=== PATIENT | female | born 1960 | race Caucasian/White ===

== ENCOUNTER 2022-12-22 12:11 | Outpatient (REF) | payer OTHER, SELFPAY ==
[2022-12-22 13:52] LABS: Hematocrit 41.2 % (37.0-47.0); Hemoglobin 13.2 g/dl (12.0-16.0); Mean Corpuscular Hemoglobin 27.2 pg (27.0-33.0); Mean Corpuscular Volume 84.9 fL (80.0-98.0); Mean Platelet Volume 10.4 fL (9.4-12.3); Platelet Count 305 X10*3/uL (160-400); Red Blood Count 4.85 X10*6/uL (4.20-5.50); Red Cell Distribution Width 13.3 % (11.0-16.0); White Blood Count 6.7 X10*3/uL (4.8-10.8)
[2022-12-22 13:53] LABS: Appearance Urine Clear; Color Urine Yellow; Glucose Urine UA Negative (Negative); Leukocyte Esterase Urine Small (1+) (Negative); Nitrite Urine Negative (Negative); PH 7.5 (5.0-9.0); Specific Gravity - Urine 1.015 (1.005-1.025); UMIC TRIGGER UACC YES; Urine Blood Negative (Negative); Urine Ketones Negative (Negative); Urine Protein Negative (Neg-Trace)
[2022-12-22 13:59] LABS: Bacteria Urine None Seen (None Seen); Hyaline Casts Urine 0-2 /LPF (0-2); RBC Urine 0-2 /HPF (0-2); UACC Culture Trigger YES
[2022-12-22 14:21] LABS: Alanine Aminotransferase 27 U/L (0-31); Albumin Level 4.3 g/dL (3.5-5.0); Alkaline Phosphatase 79 U/L (39-117); Anion Gap 12 (12-20); Aspartate Amino Transferase 19 U/L (5-31); Bilirubin Total 0.6 mg/dL (0.0-1.0); Blood Urea Nitrogen 13 mg/dL (9-16); Calcium 9.8 mg/dL (8.4-10.2); Carbon Dioxide 26 mmol/L (22-29); Chloride 105 mmol/L (96-108); Cholesterol 245 mg/dL; Estimated Glomerular Filt Rate > 60; Glucose Fasting 99 mg/dL (60-99); HDL Cholesterol 64 mg/dL; LDL Cholesterol Calculated 165 mg/dl; Sodium 139 mmol/L (135-145); Total Protein 7.9 g/dL (6.5-8.0); Triglycerides 80 mg/dL
[2022-12-22 14:37] LABS: TSH reflex Free T4 3.11 uIU/mL (0.32-4.0)
== END 2022-12-22 12:12 | disposition home or self-care (01) ==
LOC: HO.WFDLDS 12:11
PROVIDERS: Visit Provider Nurse Practitioner Family
DX: Z00.00 Encounter for general adult medical examination without abnormal findings (principal); E78.5 Hyperlipidemia, unspecified
CPT/HCPCS: 36415; 80053; 80061; 81001; 84443; 85027; 87086

== ENCOUNTER 2023-01-25 15:42 | Outpatient (AMB) | payer OTHER, SELFPAY ==
[2023-01-25 15:53] VITALS: BP 128/80; PULSE 88; RESP 12; TEMP 36.6; O2SAT 98; BMI 39.4
--- NOTE | 2023-01-25 15:53 | A.OFFPC_ITS ---
Vital Signs 01/25/23 15:53 Height 5 ft 2 in Weight 215 lb 8 oz BMI 39.4 BP 128/80 Blood Pressure Location Rt brachial Position Sitting Respiration 12 Pulse 88 Pulse Source Pulse Oximeter Temp 97.9 F Temp Source Temporal Artery Scan Pulse Oximetry (%) 98 Oxygen Delivery Method Room Air Intake Visit Reasons: f/u lab review and abdominal pain Intake Note: Patient states that abdominal pain is more rare now and only occurs when she eats late in the night. Patient states that omeprazole causes pressure and pain on her bladder and caused her to urinate alot more frequently and causes urinating to sting. Patient stopped taking the Omeprazole due to these problems. Sole Rounding Machine Operator Required: Yes Sole Rounding Machine Operator Name: Leticia (daughter) Accompanied by: Daughter Allergies No Known Allergies Allergy (Verified 01/25/23 16:10) Medication List - Last Reconciled 01/25/23 by Herve Mcelroy CNP aspirin 81 mg PO DAILY Tobacco use date assessed: 12/22/22 Dental Screening Dental Screen Date: 01/25/23 Did you have a dental visit in the last 12 months?: Yes Did you have a dental problem in the last 6 months where you did not have access to dental care?: No Was dental information given to patient?: Patient has dentist HPI HPI Comments History of Present Illness Details 62-year-old female, accompanied by her daughter, presents for chronic, intermittent abdominal pain and recent labs review follow-up. She established care month ago. She was started on omeprazole for burning and dull abdominal pain. She reports less frequent abdominal pain; she notes she experiences the pain which she eats late at night. She reports pressure pain to her bladder, and frequent and burning with urination while she was on omeprazole; She stopped taking the medication and her symtptoms completely subsided. No acute symptoms. She notes she recently sent a stool sample for Cologuard test. [facility] Medical History High blood pressure Surgical History No pertinent past surgical history Family History Mother High blood pressure Diabetes Father High blood pressure Diabetes Other Mental health disorder Social History Housing: House Patient Tobacco Use Status: Never used Tobacco e-Cigarette/Vaping Use: Never Used service: No Current occupational status: employed Current occupation: Regional Recruiter Cognitive needs: No Hearing needs: No Vision needs: Yes Questionnaire Thrive Questionnaire Date Thrive assessed: 12/22/22 TON-7 AMB Questionnaire TON-7 Date TON - 7 assessed: 12/22/22 Source: Developed by Drs. Nazario Pereira, Africa Bustos, Kiran Alberto and colleagues, with an educational boris from [employer]. Review of Systems Const Details: Const Denies chills, Denies fatigue, Denies fever(s), Denies headache(s) and Denies weakness ENT Denies dizziness and Denies headache(s) Card Denies chest pain, Denies lightheadedness, Denies dyspnea and Denies other (Palpitations) Resp Denies cough, Denies dyspnea, Denies wheezing and Denies other ( shortness of breath) GI Denies abdominal pain, Denies melena, Denies hematochezia, Denies change in bowel habits, Denies dyspepsia and Denies nausea Denies hematuria and Denies dysuria Musc Denies abnormal gait, Denies myalgias, Denies arthralgias, Denies numbness and Denies tingling Skin/Breast Denies rash, Denies unusual bruising and Denies wounds Neuro Denies abnormal gait, Denies dizziness, Denies headache(s), Denies memory loss, Denies numbness, Denies Sensory deficit (Neuro), Denies tingling and Denies weakness Psych Denies anxiety and Denies depression Endo Denies fatigue Aller/Immun Denies wheezing Physical exam (Primary Care) Vital Signs: Last Vital Signs Temp 97.9 F 01/25/23 15:53 Pulse 88 01/25/23 15:53 Resp 12 01/25/23 15:53 BP 128/80 01/25/23 15:53 Pulse Ox 98 01/25/23 15:53 Oxygen Delivery Method Room Air 01/25/23 15:53 BMI result Body Mass Index 39.4 Tobacco/Smoking Status: Tobacco use Status Tobacco use date assessed 12/22/22 01/25/23 16:04 Patient Tobacco Use Status Never used Tobacco 07/25/23 16:04 e-Cigarette/Vaping Use Never Used 01/25/23 16:04 Thrive Assessment: Date of Thrive Assessment Date Thrive assessed 12/22/22 01/25/23 16:04 Const Other: General: no acute distress and well developed Nutritional Appearance: well nourished Orientation/consciousness: patient oriented x3 [facility] Head: Yes normocephalic and Yes atraumatic Eyes General: appearance normal, both eyes and all related structures Pupils: Equal, round and reactive pupils present EOM: EOMs intact bilaterally Resp Effort & Inspection: normal respiratory effort Auscultation: clear to auscultation bilaterally Cardio Rate: regular rate Rhythm: regular rhythm Heart sounds: S1 normal heart sound present, S2 normal heart sound present, no gallops, no murmurs and no rubs GI Palpation (GI): No Abdominal aortic bruit present, Soft to palpation, nontender, No hepatosplenomegaly present and No Rebound tenderness present Auscultation: normal bowel sounds General: Yes no CVA tenderness Back/Spine/Pelvis Back: no CVA tenderness Cervical Spine: cervical ROM normal and No Cervical spine tenderness Thoracic/Lumbar Spine: thoraco-lumbar ROM normal, No pain with thoraco-lumbar ROM, No thoracic spinal tenderness and No lumbar spinal tenderness Extrem General: Yes normal to inspection, No edema and No calf tenderness Skin General: warm and dry. Normal skin color. Normal skin turgor Lesions: no lesions Rashes: no rashes Trauma: no lacerations or abrasions Wounds: no wounds Nails: normal Neuro General: patient oriented x3, gait normal and no focal neuro deficit Cranial nerves: Yes Equal, round and reactive pupils present Cognition (Neuro): normal cognition Gait exam (Neuro): Normal gait present Sensory Exam: No Sensory deficit (Neuro) Psych Affect: normal affect Assessment and Plan Assessment & Plan (1) Hypercholesteremia: Code(s): E78.00 - Pure hypercholesterolemia, unspecified Plan: Recent lab results reviewed with the patient Total cholesterol and LDL are elevated, triglycerides and HDL are normal Advised to limit foods high in saturated fat and avoid foods high trans fat Follow-up in 1 month for complete physical exam Routine exercise encouraged Verbalized understanding and agreed with treatment plan. (2) Localized abdominal pain: Code(s): R10.9 - Unspecified abdominal pain Plan: Reports improved symptoms Advised to follow-up with worsening or new symptoms Verbalized understanding and agreed with plan. (3) Obesity (BMI 30-39.9): Code(s): E66.9 - Obesity, unspecified Plan: Her BMI is 39.4 Healthy diet and routine exercise encouraged May referred to with management if needed Verbalized understanding and agreed with the plan. Coding Level of Care Code Est Pt Level 3 (47378) Diagnoses Hypercholesteremia E78.00 Localized abdominal pain R10.9 Obesity (BMI 30-39.9) E66.9 Time Spent (min) 25
== END 2023-01-25 16:34 | disposition home or self-care (01) ==
PROVIDERS: PCP Nurse Practitioner Family; Visit Provider Nurse Practitioner Family
DX: E78.00 Pure hypercholesterolemia, unspecified (principal); R10.9 Unspecified abdominal pain; E66.9 Obesity, unspecified; Z68.39 Body mass index [BMI] 39.0-39.9, adult
CPT/HCPCS: 99213